=== PATIENT | female | born 1960 | race American Indian/Alaskan Native ===

== ENCOUNTER 2016-11-16 13:00 | Outpatient (CLI) | payer BC ==
[2016-11-16] MEDS ORDERED: XYLOCAINE TOPICAL 4% TP ONE (13:25)
[2016-11-16] MEDS ORDERED: XYLOCAINE TOPICAL 2% ONE (13:26)
[2016-11-16] MEDS ORDERED: XYLOCAINE TOPICAL 2% TP ONE (13:43)
== END 2016-11-16 13:01 | disposition home or self-care (01) ==
LOC: WOUND 13:00
PROVIDERS: ATTEND Nurse Practitioner
DX: I87.2 Venous insufficiency (chronic) (peripheral) (principal); L97.311 Non-pressure chronic ulcer of right ankle limited to breakdown of skin; I70.213 Atherosclerosis of native arteries of extremities with intermittent claudication, bilateral legs; I70.221 Atherosclerosis of native arteries of extremities with rest pain, right leg; M19.90 Unspecified osteoarthritis, unspecified site; I10 Essential (primary) hypertension; Z87.891 Personal history of nicotine dependence; Z98.62 Peripheral vascular angioplasty status; Z72.89 Other problems related to lifestyle
CPT/HCPCS: 11042; G0463

== ENCOUNTER 2016-11-20 14:48 | Outpatient (CLI) | payer BC | END 2016-11-20 14:49 | disposition home or self-care (01) | LOC: WOUND 14:48 | PROVIDERS: ATTEND Internal Medicine | DX: I87.2 Venous insufficiency (chronic) (peripheral) (principal); L97.311 Non-pressure chronic ulcer of right ankle limited to breakdown of skin; I70.213 Atherosclerosis of native arteries of extremities with intermittent claudication, bilateral legs; I70.221 Atherosclerosis of native arteries of extremities with rest pain, right leg; M06.9 Rheumatoid arthritis, unspecified; Z87.891 Personal history of nicotine dependence; Z72.89 Other problems related to lifestyle | CPT/HCPCS: 99213; G0463 ==

== ENCOUNTER 2016-11-23 13:03 | Outpatient (CLI) | payer BC ==
[2016-11-23] MEDS ORDERED: XYLOCAINE TOPICAL 4% TP ONE ×2 (13:42→13:48)
== END 2016-11-23 13:04 | disposition home or self-care (01) ==
LOC: WOUND 13:03
PROVIDERS: ATTEND Nurse Practitioner
DX: I87.2 Venous insufficiency (chronic) (peripheral) (principal); I70.221 Atherosclerosis of native arteries of extremities with rest pain, right leg; I70.213 Atherosclerosis of native arteries of extremities with intermittent claudication, bilateral legs; L97.311 Non-pressure chronic ulcer of right ankle limited to breakdown of skin; I10 Essential (primary) hypertension; M06.9 Rheumatoid arthritis, unspecified; Z98.62 Peripheral vascular angioplasty status; Z87.891 Personal history of nicotine dependence; Z72.89 Other problems related to lifestyle

== ENCOUNTER 2016-11-30 13:17 | Outpatient (CLI) | payer BC ==
[2016-11-30] MEDS ORDERED: XYLOCAINE TOPICAL 4% TP ONE ×2 (13:46→13:54)
== END 2016-11-30 13:18 | disposition home or self-care (01) ==
LOC: WOUND 13:17
PROVIDERS: ATTEND Nurse Practitioner
DX: I87.2 Venous insufficiency (chronic) (peripheral) (principal); M06.9 Rheumatoid arthritis, unspecified; I10 Essential (primary) hypertension; Z87.891 Personal history of nicotine dependence; Z72.89 Other problems related to lifestyle

== ENCOUNTER 2016-12-07 13:39 | Outpatient (CLI) | payer BC ==
[2016-12-07] MEDS ORDERED: XYLOCAINE TOPICAL 4% TP ONE ×2 (14:11→14:13)
== END 2016-12-07 13:40 | disposition home or self-care (01) ==
LOC: WOUND 13:39
PROVIDERS: ATTEND Nurse Practitioner
DX: I87.2 Venous insufficiency (chronic) (peripheral) (principal); L97.311 Non-pressure chronic ulcer of right ankle limited to breakdown of skin; I70.213 Atherosclerosis of native arteries of extremities with intermittent claudication, bilateral legs; I70.221 Atherosclerosis of native arteries of extremities with rest pain, right leg; M19.90 Unspecified osteoarthritis, unspecified site; I10 Essential (primary) hypertension; Z98.62 Peripheral vascular angioplasty status; Z87.891 Personal history of nicotine dependence; Z72.89 Other problems related to lifestyle
CPT/HCPCS: 29580

== ENCOUNTER 2016-12-15 13:08 | Outpatient (CLI) | payer BC ==
[2016-12-15] MEDS ORDERED: XYLOCAINE TOPICAL 4% TP ONE ×2 (13:35→13:48)
== END 2016-12-15 13:09 | disposition home or self-care (01) ==
LOC: WOUND 13:08
PROVIDERS: ATTEND Podiatrist
DX: I87.311 Chronic venous hypertension (idiopathic) with ulcer of right lower extremity (principal); I70.221 Atherosclerosis of native arteries of extremities with rest pain, right leg; L97.812 Non-pressure chronic ulcer of other part of right lower leg with fat layer exposed; M19.90 Unspecified osteoarthritis, unspecified site; Z98.62 Peripheral vascular angioplasty status; Z87.891 Personal history of nicotine dependence; Z72.89 Other problems related to lifestyle
CPT/HCPCS: 87075; 87076; 87116; 87186

== ENCOUNTER 2016-12-22 13:27 | Outpatient (CLI) | payer BC ==
[2016-12-22] MEDS ORDERED: XYLOCAINE TOPICAL 4% TP ONE (13:38)
[2016-12-22] MEDS ORDERED: XYLOCAINE TOPICAL 2% TP ONE (13:38)
[2016-12-22] MEDS ORDERED: XYLOCAINE TOPICAL 2% ONE (13:43)
== END 2016-12-22 13:28 | disposition home or self-care (01) ==
LOC: WOUND 13:27
PROVIDERS: ATTEND Podiatrist
DX: I87.311 Chronic venous hypertension (idiopathic) with ulcer of right lower extremity (principal); L97.311 Non-pressure chronic ulcer of right ankle limited to breakdown of skin; I70.213 Atherosclerosis of native arteries of extremities with intermittent claudication, bilateral legs; M06.9 Rheumatoid arthritis, unspecified; Z98.62 Peripheral vascular angioplasty status; Z87.891 Personal history of nicotine dependence; Z72.89 Other problems related to lifestyle

== ENCOUNTER 2016-12-26 13:45 | Outpatient (CLI) | payer BC | END 2016-12-26 13:46 | disposition home or self-care (01) | LOC: WOUND 13:45 | PROVIDERS: ATTEND Surgery | DX: I87.311 Chronic venous hypertension (idiopathic) with ulcer of right lower extremity (principal); L97.311 Non-pressure chronic ulcer of right ankle limited to breakdown of skin; L97.812 Non-pressure chronic ulcer of other part of right lower leg with fat layer exposed; I70.213 Atherosclerosis of native arteries of extremities with intermittent claudication, bilateral legs; I70.221 Atherosclerosis of native arteries of extremities with rest pain, right leg; M06.9 Rheumatoid arthritis, unspecified; Z87.891 Personal history of nicotine dependence; Z72.89 Other problems related to lifestyle; Z98.62 Peripheral vascular angioplasty status | CPT/HCPCS: 29580 ==

== ENCOUNTER 2016-12-29 11:23 | Outpatient (CLI) | payer BC ==
[2016-12-29] MEDS ORDERED: XYLOCAINE TOPICAL 4% TP ONE ×3 (13:58→14:05)
== END 2016-12-29 11:24 | disposition home or self-care (01) ==
LOC: WOUND 11:23
PROVIDERS: ATTEND Podiatrist
DX: I87.311 Chronic venous hypertension (idiopathic) with ulcer of right lower extremity (principal); L97.812 Non-pressure chronic ulcer of other part of right lower leg with fat layer exposed; M06.9 Rheumatoid arthritis, unspecified; Z98.62 Peripheral vascular angioplasty status; Z87.891 Personal history of nicotine dependence; Z72.89 Other problems related to lifestyle

== ENCOUNTER 2017-01-05 13:16 | Outpatient (CLI) | payer BC ==
[2017-01-05] MEDS ORDERED: XYLOCAINE TOPICAL 4% TP ONE (14:08)
== END 2017-01-05 13:17 | disposition home or self-care (01) ==
LOC: WOUND 13:16
PROVIDERS: ATTEND Podiatrist
DX: I87.311 Chronic venous hypertension (idiopathic) with ulcer of right lower extremity (principal); L97.311 Non-pressure chronic ulcer of right ankle limited to breakdown of skin; I70.213 Atherosclerosis of native arteries of extremities with intermittent claudication, bilateral legs; L97.812 Non-pressure chronic ulcer of other part of right lower leg with fat layer exposed; I70.221 Atherosclerosis of native arteries of extremities with rest pain, right leg; M06.9 Rheumatoid arthritis, unspecified; I87.2 Venous insufficiency (chronic) (peripheral); Z98.62 Peripheral vascular angioplasty status; Z87.891 Personal history of nicotine dependence; Z72.89 Other problems related to lifestyle

== ENCOUNTER 2017-01-12 13:22 | Outpatient (CLI) | payer BC ==
[2017-01-12] MEDS ORDERED: XYLOCAINE TOPICAL 4% TP ONE ×2 (13:45→13:46)
== END 2017-01-12 13:23 | disposition home or self-care (01) ==
LOC: WOUND 13:22
PROVIDERS: ATTEND Podiatrist
DX: I87.311 Chronic venous hypertension (idiopathic) with ulcer of right lower extremity (principal); I70.233 Atherosclerosis of native arteries of right leg with ulceration of ankle; L97.812 Non-pressure chronic ulcer of other part of right lower leg with fat layer exposed; M06.9 Rheumatoid arthritis, unspecified; Z98.62 Peripheral vascular angioplasty status; Z87.891 Personal history of nicotine dependence; Z72.89 Other problems related to lifestyle

== ENCOUNTER 2017-01-19 13:21 | Outpatient (CLI) | payer BC ==
[2017-01-19] MEDS ORDERED: XYLOCAINE TOPICAL 4% TP ONE ×2 (13:41→14:11)
== END 2017-01-19 13:22 | disposition home or self-care (01) ==
LOC: WOUND 13:21
PROVIDERS: ATTEND Podiatrist
DX: I87.311 Chronic venous hypertension (idiopathic) with ulcer of right lower extremity (principal); L97.812 Non-pressure chronic ulcer of other part of right lower leg with fat layer exposed; I70.213 Atherosclerosis of native arteries of extremities with intermittent claudication, bilateral legs; M06.9 Rheumatoid arthritis, unspecified; Z98.62 Peripheral vascular angioplasty status; Z87.891 Personal history of nicotine dependence; Z72.89 Other problems related to lifestyle

== ENCOUNTER 2017-02-02 13:25 | Outpatient (CLI) | payer BC | END 2017-02-02 13:26 | disposition home or self-care (01) | LOC: WOUND 13:25 | PROVIDERS: ATTEND Podiatrist | DX: I87.311 Chronic venous hypertension (idiopathic) with ulcer of right lower extremity (principal); L97.812 Non-pressure chronic ulcer of other part of right lower leg with fat layer exposed; M19.90 Unspecified osteoarthritis, unspecified site; I10 Essential (primary) hypertension; Z98.62 Peripheral vascular angioplasty status; Z87.891 Personal history of nicotine dependence; Z72.89 Other problems related to lifestyle | CPT/HCPCS: 29580 ==

== ENCOUNTER 2017-02-09 13:24 | Outpatient (CLI) | payer BC ==
[2017-02-09] MEDS ORDERED: XYLOCAINE TOPICAL 4% TP ONE ×2 (13:30→15:00)
== END 2017-02-09 13:25 | disposition home or self-care (01) ==
LOC: WOUND 13:24
PROVIDERS: ATTEND Podiatrist
DX: I87.311 Chronic venous hypertension (idiopathic) with ulcer of right lower extremity (principal); L97.311 Non-pressure chronic ulcer of right ankle limited to breakdown of skin; I70.221 Atherosclerosis of native arteries of extremities with rest pain, right leg; M06.9 Rheumatoid arthritis, unspecified; Z87.891 Personal history of nicotine dependence; Z72.89 Other problems related to lifestyle

== ENCOUNTER 2017-02-23 13:22 | Outpatient (CLI) | payer BC ==
[2017-02-23] MEDS ORDERED: XYLOCAINE TOPICAL 4% TP ONE (14:00)
== END 2017-02-23 13:23 | disposition home or self-care (01) ==
LOC: WOUND 13:22
PROVIDERS: ATTEND Podiatrist
DX: I87.311 Chronic venous hypertension (idiopathic) with ulcer of right lower extremity (principal); L97.812 Non-pressure chronic ulcer of other part of right lower leg with fat layer exposed; I70.213 Atherosclerosis of native arteries of extremities with intermittent claudication, bilateral legs; I70.221 Atherosclerosis of native arteries of extremities with rest pain, right leg; M06.9 Rheumatoid arthritis, unspecified; I10 Essential (primary) hypertension; Z87.891 Personal history of nicotine dependence; Z72.89 Other problems related to lifestyle

== ENCOUNTER 2017-03-05 10:47 | Outpatient (CLI) | payer BC ==
[2017-03-05] MEDS ORDERED: XYLOCAINE TOPICAL 4% TP ONE ×2 (12:05→12:09)
== END 2017-03-05 10:48 | disposition home or self-care (01) ==
LOC: WOUND 10:47
PROVIDERS: ATTEND Internal Medicine
DX: I87.311 Chronic venous hypertension (idiopathic) with ulcer of right lower extremity (principal); I70.213 Atherosclerosis of native arteries of extremities with intermittent claudication, bilateral legs; L97.812 Non-pressure chronic ulcer of other part of right lower leg with fat layer exposed; M06.9 Rheumatoid arthritis, unspecified; Z98.62 Peripheral vascular angioplasty status; Z87.891 Personal history of nicotine dependence; Z72.89 Other problems related to lifestyle
CPT/HCPCS: 11055; 11056

== ENCOUNTER 2017-03-23 07:54 | Outpatient (CLI) | payer BC ==
[2017-03-23] MEDS ORDERED: XYLOCAINE TOPICAL 4% TP ONE (08:20)
== END 2017-03-23 07:55 | disposition home or self-care (01) ==
LOC: WOUND 07:54
PROVIDERS: ATTEND Podiatrist
DX: I87.311 Chronic venous hypertension (idiopathic) with ulcer of right lower extremity (principal); L97.312 Non-pressure chronic ulcer of right ankle with fat layer exposed; I87.2 Venous insufficiency (chronic) (peripheral); I70.233 Atherosclerosis of native arteries of right leg with ulceration of ankle; I10 Essential (primary) hypertension; M19.90 Unspecified osteoarthritis, unspecified site; Z87.891 Personal history of nicotine dependence; Z72.89 Other problems related to lifestyle

== ENCOUNTER 2017-03-30 07:50 | Outpatient (CLI) | payer BC ==
[2017-03-30] MEDS ORDERED: XYLOCAINE TOPICAL 4% TP ONE (08:38)
[2017-03-30] MEDS ORDERED: XYLOCAINE TOPICAL 2% 5ML ONE (08:40)
== END 2017-03-30 07:51 | disposition home or self-care (01) ==
LOC: WOUND 07:50
PROVIDERS: ATTEND Podiatrist
DX: I87.311 Chronic venous hypertension (idiopathic) with ulcer of right lower extremity (principal); I70.261 Atherosclerosis of native arteries of extremities with gangrene, right leg; L97.312 Non-pressure chronic ulcer of right ankle with fat layer exposed; M06.9 Rheumatoid arthritis, unspecified; Z87.891 Personal history of nicotine dependence; Z72.89 Other problems related to lifestyle

== ENCOUNTER 2017-04-06 07:49 | Outpatient (CLI) | payer BC ==
[2017-04-06] MEDS ORDERED: XYLOCAINE TOPICAL 4% TP ONE ×2 (08:36→08:43)
== END 2017-04-06 07:50 | disposition home or self-care (01) ==
LOC: WOUND 07:49
PROVIDERS: ATTEND Podiatrist
DX: I87.311 Chronic venous hypertension (idiopathic) with ulcer of right lower extremity (principal); L97.812 Non-pressure chronic ulcer of other part of right lower leg with fat layer exposed; I70.221 Atherosclerosis of native arteries of extremities with rest pain, right leg; M06.9 Rheumatoid arthritis, unspecified; Z87.891 Personal history of nicotine dependence; Z72.89 Other problems related to lifestyle

== ENCOUNTER 2017-04-13 07:54 | Outpatient (CLI) | payer BC ==
[2017-04-13] MEDS ORDERED: XYLOCAINE TOPICAL 4% TP ONE (08:28)
== END 2017-04-13 07:55 | disposition home or self-care (01) ==
LOC: WOUND 07:54
PROVIDERS: ATTEND Podiatrist
DX: I87.311 Chronic venous hypertension (idiopathic) with ulcer of right lower extremity (principal); L97.812 Non-pressure chronic ulcer of other part of right lower leg with fat layer exposed; I70.213 Atherosclerosis of native arteries of extremities with intermittent claudication, bilateral legs; M06.9 Rheumatoid arthritis, unspecified; Z98.62 Peripheral vascular angioplasty status; Z87.891 Personal history of nicotine dependence; Z72.89 Other problems related to lifestyle

== ENCOUNTER 2017-04-20 07:52 | Outpatient (CLI) | payer BC ==
[2017-04-20] MEDS ORDERED: XYLOCAINE TOPICAL 4% TP ONE ×2 (08:24→08:28)
== END 2017-04-20 07:53 | disposition home or self-care (01) ==
LOC: WOUND 07:52
PROVIDERS: ATTEND Podiatrist
DX: I70.221 Atherosclerosis of native arteries of extremities with rest pain, right leg (principal); I87.311 Chronic venous hypertension (idiopathic) with ulcer of right lower extremity; L97.311 Non-pressure chronic ulcer of right ankle limited to breakdown of skin; M06.9 Rheumatoid arthritis, unspecified; I10 Essential (primary) hypertension; Z87.891 Personal history of nicotine dependence; Z72.89 Other problems related to lifestyle

== ENCOUNTER 2017-04-27 07:53 | Outpatient (CLI) | payer BC ==
[2017-04-27] MEDS ORDERED: XYLOCAINE TOPICAL 4% TP ONE ×3 (08:22→09:06)
[2017-04-27] MEDS ORDERED: AD OINTMENT TP SCH (10:00)
== END 2017-04-27 07:54 | disposition home or self-care (01) ==
LOC: WOUND 07:53
PROVIDERS: ATTEND Internal Medicine
DX: I70.221 Atherosclerosis of native arteries of extremities with rest pain, right leg (principal); I87.311 Chronic venous hypertension (idiopathic) with ulcer of right lower extremity; L97.311 Non-pressure chronic ulcer of right ankle limited to breakdown of skin; M06.9 Rheumatoid arthritis, unspecified; I10 Essential (primary) hypertension; Z87.891 Personal history of nicotine dependence; Z72.89 Other problems related to lifestyle
CPT/HCPCS: 11055; A6250

== ENCOUNTER 2017-05-04 07:50 | Outpatient (CLI) | payer BC ==
[2017-05-04] MEDS ORDERED: XYLOCAINE TOPICAL 4% TP ONE ×2 (08:03→08:15)
== END 2017-05-04 07:51 | disposition home or self-care (01) ==
LOC: WOUND 07:50
PROVIDERS: ATTEND Podiatrist
DX: I87.311 Chronic venous hypertension (idiopathic) with ulcer of right lower extremity (principal); L97.812 Non-pressure chronic ulcer of other part of right lower leg with fat layer exposed; I70.213 Atherosclerosis of native arteries of extremities with intermittent claudication, bilateral legs; M06.9 Rheumatoid arthritis, unspecified; Z87.891 Personal history of nicotine dependence; Z72.89 Other problems related to lifestyle
CPT/HCPCS: 29580

== ENCOUNTER 2017-05-11 07:56 | Outpatient (CLI) | payer BC ==
[2017-05-11] MEDS ORDERED: XYLOCAINE TOPICAL 4% TP ONE (08:31)
== END 2017-05-11 07:57 | disposition home or self-care (01) ==
LOC: WOUND 07:56
PROVIDERS: ATTEND Podiatrist
DX: I87.311 Chronic venous hypertension (idiopathic) with ulcer of right lower extremity (principal); L97.812 Non-pressure chronic ulcer of other part of right lower leg with fat layer exposed; I70.221 Atherosclerosis of native arteries of extremities with rest pain, right leg; M06.9 Rheumatoid arthritis, unspecified; Z98.62 Peripheral vascular angioplasty status; Z87.891 Personal history of nicotine dependence; Z72.89 Other problems related to lifestyle
CPT/HCPCS: 29580

== ENCOUNTER 2017-05-18 07:50 | Outpatient (CLI) | payer BC ==
[2017-05-18] MEDS ORDERED: XYLOCAINE TOPICAL 4% TP ONE (08:22)
== END 2017-05-18 07:51 | disposition home or self-care (01) ==
LOC: WOUND 07:50
PROVIDERS: ATTEND Podiatrist
DX: L97.311 Non-pressure chronic ulcer of right ankle limited to breakdown of skin (principal); I87.311 Chronic venous hypertension (idiopathic) with ulcer of right lower extremity; I70.213 Atherosclerosis of native arteries of extremities with intermittent claudication, bilateral legs; M06.9 Rheumatoid arthritis, unspecified; Z87.891 Personal history of nicotine dependence
CPT/HCPCS: 29580

== ENCOUNTER 2017-05-25 07:53 | Outpatient (CLI) | payer BC | END 2017-05-25 07:54 | disposition home or self-care (01) | LOC: WOUND 07:53 | PROVIDERS: ATTEND Podiatrist | DX: I87.311 Chronic venous hypertension (idiopathic) with ulcer of right lower extremity (principal); L97.812 Non-pressure chronic ulcer of other part of right lower leg with fat layer exposed; L97.311 Non-pressure chronic ulcer of right ankle limited to breakdown of skin; M06.9 Rheumatoid arthritis, unspecified; I10 Essential (primary) hypertension; I70.221 Atherosclerosis of native arteries of extremities with rest pain, right leg; Z98.62 Peripheral vascular angioplasty status; Z87.891 Personal history of nicotine dependence; Z72.89 Other problems related to lifestyle | CPT/HCPCS: 99204; 99214; G0463 ==

== ENCOUNTER 2017-07-26 08:00 | Outpatient (CLI) | payer BC ==
[2017-07-26] MEDS ORDERED: XYLOCAINE TOPICAL 4% TP ONE (08:27)
== END 2017-07-26 08:01 | disposition home or self-care (01) ==
LOC: WOUND 08:00
PROVIDERS: ATTEND Nurse Practitioner
DX: I87.311 Chronic venous hypertension (idiopathic) with ulcer of right lower extremity (principal); L97.311 Non-pressure chronic ulcer of right ankle limited to breakdown of skin; L97.812 Non-pressure chronic ulcer of other part of right lower leg with fat layer exposed; M06.9 Rheumatoid arthritis, unspecified; I10 Essential (primary) hypertension; I70.221 Atherosclerosis of native arteries of extremities with rest pain, right leg; Z98.62 Peripheral vascular angioplasty status; Z87.891 Personal history of nicotine dependence
CPT/HCPCS: 11042; 29580; G0463

== ENCOUNTER 2017-08-02 07:56 | Outpatient (CLI) | payer BC ==
[2017-08-02] MEDS ORDERED: XYLOCAINE TOPICAL 4% TP ONE ×2 (08:11→12:38)
== END 2017-08-02 07:57 | disposition home or self-care (01) ==
LOC: WOUND 07:56
PROVIDERS: ATTEND Surgery
DX: I87.311 Chronic venous hypertension (idiopathic) with ulcer of right lower extremity (principal); L97.311 Non-pressure chronic ulcer of right ankle limited to breakdown of skin; L97.812 Non-pressure chronic ulcer of other part of right lower leg with fat layer exposed; M06.9 Rheumatoid arthritis, unspecified; I10 Essential (primary) hypertension; I70.221 Atherosclerosis of native arteries of extremities with rest pain, right leg; Z98.62 Peripheral vascular angioplasty status; Z87.891 Personal history of nicotine dependence
CPT/HCPCS: 29580

== ENCOUNTER 2017-08-09 07:55 | Outpatient (CLI) | payer BC ==
[2017-08-09] MEDS ORDERED: XYLOCAINE TOPICAL 4% TP ONE ×2 (08:19→08:35)
[2017-08-09] MEDS ORDERED: SILVER NITRATE TP ONE ×2 (08:39→10:21)
== END 2017-08-09 07:56 | disposition home or self-care (01) ==
LOC: WOUND 07:55
PROVIDERS: ATTEND Nurse Practitioner
DX: I87.311 Chronic venous hypertension (idiopathic) with ulcer of right lower extremity (principal); I70.221 Atherosclerosis of native arteries of extremities with rest pain, right leg; L97.312 Non-pressure chronic ulcer of right ankle with fat layer exposed; M06.9 Rheumatoid arthritis, unspecified; F17.210 Nicotine dependence, cigarettes, uncomplicated
CPT/HCPCS: 29580

== ENCOUNTER 2017-08-16 07:59 | Outpatient (CLI) | payer BC ==
[2017-08-16] MEDS ORDERED: XYLOCAINE TOPICAL 4% TP ONE ×2 (08:32→08:33)
== END 2017-08-16 08:00 | disposition home or self-care (01) ==
LOC: WOUND 07:59
PROVIDERS: ATTEND Surgery
DX: I87.311 Chronic venous hypertension (idiopathic) with ulcer of right lower extremity (principal); L97.311 Non-pressure chronic ulcer of right ankle limited to breakdown of skin; M06.9 Rheumatoid arthritis, unspecified; F17.210 Nicotine dependence, cigarettes, uncomplicated
CPT/HCPCS: 29580

== ENCOUNTER 2017-08-23 08:00 | Outpatient (CLI) | payer BC ==
[2017-08-23] MEDS ORDERED: XYLOCAINE TOPICAL 4% TP ONE (08:05)
== END 2017-08-23 08:01 | disposition home or self-care (01) ==
LOC: WOUND 08:00
PROVIDERS: ATTEND Surgery
DX: I87.311 Chronic venous hypertension (idiopathic) with ulcer of right lower extremity (principal); L97.311 Non-pressure chronic ulcer of right ankle limited to breakdown of skin; M06.9 Rheumatoid arthritis, unspecified; F17.210 Nicotine dependence, cigarettes, uncomplicated
CPT/HCPCS: 29581

== ENCOUNTER 2017-08-30 08:01 | Outpatient (CLI) | payer BC ==
[2017-08-30] MEDS ORDERED: XYLOCAINE TOPICAL 4% TP ONE (08:14)
== END 2017-08-30 08:02 | disposition home or self-care (01) ==
LOC: WOUND 08:01
PROVIDERS: ATTEND Surgery
DX: I87.311 Chronic venous hypertension (idiopathic) with ulcer of right lower extremity (principal); L97.311 Non-pressure chronic ulcer of right ankle limited to breakdown of skin; I70.213 Atherosclerosis of native arteries of extremities with intermittent claudication, bilateral legs; M06.9 Rheumatoid arthritis, unspecified; F17.210 Nicotine dependence, cigarettes, uncomplicated
CPT/HCPCS: 29580

== ENCOUNTER 2017-09-07 08:41 | Outpatient (CLI) | payer BC ==
[~2017-09-07 08:41] MED LIST: XYLOCAINE TOPICAL 4% TP ONE
[2017-09-07] MEDS ORDERED: XYLOCAINE TOPICAL 4% TP ONE (09:09)
== END 2017-09-07 08:42 | disposition home or self-care (01) ==
LOC: WOUND 08:41
PROVIDERS: ATTEND Surgery
DX: I87.311 Chronic venous hypertension (idiopathic) with ulcer of right lower extremity (principal); L97.312 Non-pressure chronic ulcer of right ankle with fat layer exposed; M06.9 Rheumatoid arthritis, unspecified; F17.210 Nicotine dependence, cigarettes, uncomplicated
CPT/HCPCS: 29580

== ENCOUNTER 2017-09-21 08:20 | Outpatient (CLI) | payer BC ==
[2017-09-21] MEDS ORDERED: XYLOCAINE TOPICAL 4% TP ONE (08:22)
== END 2017-09-21 08:21 | disposition home or self-care (01) ==
LOC: WOUND 08:20
PROVIDERS: ATTEND Surgery
DX: I87.311 Chronic venous hypertension (idiopathic) with ulcer of right lower extremity (principal); L97.311 Non-pressure chronic ulcer of right ankle limited to breakdown of skin; M06.9 Rheumatoid arthritis, unspecified; F17.210 Nicotine dependence, cigarettes, uncomplicated
CPT/HCPCS: 29580

== ENCOUNTER 2017-09-28 08:00 | Outpatient (CLI) | payer BC ==
[2017-09-28] MEDS ORDERED: XYLOCAINE TOPICAL 4% TP ONE ×2 (08:18→08:31)
== END 2017-09-28 08:01 | disposition home or self-care (01) ==
LOC: WOUND 08:00
PROVIDERS: ATTEND Surgery
DX: I87.311 Chronic venous hypertension (idiopathic) with ulcer of right lower extremity (principal); L97.311 Non-pressure chronic ulcer of right ankle limited to breakdown of skin; M06.9 Rheumatoid arthritis, unspecified; F17.210 Nicotine dependence, cigarettes, uncomplicated
CPT/HCPCS: 29580

== ENCOUNTER 2017-10-05 08:03 | Outpatient (CLI) | payer BC ==
[2017-10-05] MEDS ORDERED: XYLOCAINE TOPICAL 4% TP ONE (08:05)
== END 2017-10-05 08:04 | disposition home or self-care (01) ==
LOC: WOUND 08:03
PROVIDERS: ATTEND Surgery
DX: I87.311 Chronic venous hypertension (idiopathic) with ulcer of right lower extremity (principal); L97.312 Non-pressure chronic ulcer of right ankle with fat layer exposed; M06.9 Rheumatoid arthritis, unspecified; F17.210 Nicotine dependence, cigarettes, uncomplicated
CPT/HCPCS: 29580

== ENCOUNTER 2017-10-12 07:57 | Outpatient (CLI) | payer BC ==
[2017-10-12] MEDS ORDERED: XYLOCAINE TOPICAL 4% TP ONE ×2 (08:05→10:34)
== END 2017-10-12 07:58 | disposition home or self-care (01) ==
LOC: WOUND 07:57
PROVIDERS: ATTEND Surgery
DX: I87.311 Chronic venous hypertension (idiopathic) with ulcer of right lower extremity (principal); L97.312 Non-pressure chronic ulcer of right ankle with fat layer exposed; M06.9 Rheumatoid arthritis, unspecified; F17.210 Nicotine dependence, cigarettes, uncomplicated
CPT/HCPCS: 29580

== ENCOUNTER 2017-10-19 08:00 | Outpatient (CLI) | payer BC ==
[2017-10-19] MEDS ORDERED: XYLOCAINE TOPICAL 4% TP ONE (09:58)
== END 2017-10-19 08:01 | disposition home or self-care (01) ==
LOC: WOUND 08:00
PROVIDERS: ATTEND Surgery
DX: I87.311 Chronic venous hypertension (idiopathic) with ulcer of right lower extremity (principal); L97.312 Non-pressure chronic ulcer of right ankle with fat layer exposed; M06.9 Rheumatoid arthritis, unspecified; F17.210 Nicotine dependence, cigarettes, uncomplicated
CPT/HCPCS: 29580

== ENCOUNTER 2017-10-26 08:01 | Outpatient (CLI) | payer BC | END 2017-10-26 08:02 | disposition home or self-care (01) | LOC: WOUND 08:01 | PROVIDERS: ATTEND Surgery | DX: I87.311 Chronic venous hypertension (idiopathic) with ulcer of right lower extremity (principal); L97.312 Non-pressure chronic ulcer of right ankle with fat layer exposed; M06.9 Rheumatoid arthritis, unspecified; F17.210 Nicotine dependence, cigarettes, uncomplicated | CPT/HCPCS: 29580 ==

== ENCOUNTER 2017-11-02 07:55 | Outpatient (CLI) | payer BC ==
[2017-11-02] MEDS ORDERED: XYLOCAINE TOPICAL 4% TP ONE ×2 (07:56→08:21)
[2017-11-02] MEDS ORDERED: SILVER NITRATE TP ONE ×2 (08:28→08:31)
== END 2017-11-02 07:56 | disposition home or self-care (01) ==
LOC: WOUND 07:55
PROVIDERS: ATTEND Surgery
DX: I87.311 Chronic venous hypertension (idiopathic) with ulcer of right lower extremity (principal); L97.312 Non-pressure chronic ulcer of right ankle with fat layer exposed; M06.9 Rheumatoid arthritis, unspecified; F17.210 Nicotine dependence, cigarettes, uncomplicated
CPT/HCPCS: 29580

== ENCOUNTER 2017-11-09 07:51 | Outpatient (CLI) | payer BC ==
[2017-11-09] MEDS ORDERED: XYLOCAINE TOPICAL 4% TP ONE ×2 (07:53→08:17)
== END 2017-11-09 07:52 | disposition home or self-care (01) ==
LOC: WOUND 07:51
PROVIDERS: ATTEND Surgery
DX: I87.311 Chronic venous hypertension (idiopathic) with ulcer of right lower extremity (principal); L97.312 Non-pressure chronic ulcer of right ankle with fat layer exposed; M06.9 Rheumatoid arthritis, unspecified; F17.210 Nicotine dependence, cigarettes, uncomplicated
CPT/HCPCS: 29580

== ENCOUNTER 2017-11-16 07:47 | Outpatient (CLI) | payer BC ==
[2017-11-16] MEDS ORDERED: XYLOCAINE TOPICAL 4% TP ONE ×2 (07:58→15:19)
== END 2017-11-16 07:48 | disposition home or self-care (01) ==
LOC: WOUND 07:47
PROVIDERS: ATTEND Surgery
DX: I87.311 Chronic venous hypertension (idiopathic) with ulcer of right lower extremity (principal); I70.221 Atherosclerosis of native arteries of extremities with rest pain, right leg; L97.312 Non-pressure chronic ulcer of right ankle with fat layer exposed; M06.9 Rheumatoid arthritis, unspecified; F17.210 Nicotine dependence, cigarettes, uncomplicated
CPT/HCPCS: 29580

== ENCOUNTER 2017-12-07 07:46 | Outpatient (CLI) | payer BC | END 2017-12-07 07:47 | disposition home or self-care (01) | LOC: WOUND 07:46 | PROVIDERS: ATTEND Surgery | DX: I87.311 Chronic venous hypertension (idiopathic) with ulcer of right lower extremity (principal); I70.221 Atherosclerosis of native arteries of extremities with rest pain, right leg; L97.312 Non-pressure chronic ulcer of right ankle with fat layer exposed; M06.9 Rheumatoid arthritis, unspecified; F17.210 Nicotine dependence, cigarettes, uncomplicated | CPT/HCPCS: 29580 ==

== ENCOUNTER 2017-12-14 07:45 | Outpatient (CLI) | payer BC | END 2017-12-14 07:46 | disposition home or self-care (01) | LOC: WOUND 07:45 | PROVIDERS: ATTEND Surgery | DX: I87.311 Chronic venous hypertension (idiopathic) with ulcer of right lower extremity (principal); I70.221 Atherosclerosis of native arteries of extremities with rest pain, right leg; L97.312 Non-pressure chronic ulcer of right ankle with fat layer exposed; M06.9 Rheumatoid arthritis, unspecified; F17.210 Nicotine dependence, cigarettes, uncomplicated | CPT/HCPCS: 29580 ==

== ENCOUNTER 2017-12-21 07:47 | Outpatient (CLI) | payer BC | END 2017-12-21 07:48 | disposition home or self-care (01) | LOC: WOUND 07:47 | PROVIDERS: ATTEND Surgery | DX: I87.311 Chronic venous hypertension (idiopathic) with ulcer of right lower extremity (principal); I70.221 Atherosclerosis of native arteries of extremities with rest pain, right leg; L97.312 Non-pressure chronic ulcer of right ankle with fat layer exposed; M06.9 Rheumatoid arthritis, unspecified; F17.210 Nicotine dependence, cigarettes, uncomplicated | CPT/HCPCS: 29580; G0463; 99213 ==

== ENCOUNTER 2017-12-28 07:45 | Outpatient (CLI) | payer BC | END 2017-12-28 07:46 | disposition home or self-care (01) | LOC: WOUND 07:45 | PROVIDERS: ATTEND Surgery | DX: I87.311 Chronic venous hypertension (idiopathic) with ulcer of right lower extremity (principal); I70.211 Atherosclerosis of native arteries of extremities with intermittent claudication, right leg; L97.312 Non-pressure chronic ulcer of right ankle with fat layer exposed; M06.9 Rheumatoid arthritis, unspecified; F17.210 Nicotine dependence, cigarettes, uncomplicated | CPT/HCPCS: 29580 ==

== ENCOUNTER 2018-03-25 07:43 | Outpatient (CLI) | payer BC ==
[2018-03-25] MEDS ORDERED: XYLOCAINE TOPICAL 4% TP ONE (08:13)
[2018-03-25] MEDS ORDERED: AD OINTMENT TP PRN (08:14)
== END 2018-03-25 07:44 | disposition home or self-care (01) ==
LOC: WOUND 07:43
PROVIDERS: ATTEND Surgery
DX: L97.312 Non-pressure chronic ulcer of right ankle with fat layer exposed (principal); I87.2 Venous insufficiency (chronic) (peripheral); I10 Essential (primary) hypertension; M06.9 Rheumatoid arthritis, unspecified; F17.210 Nicotine dependence, cigarettes, uncomplicated
CPT/HCPCS: 11042; G0463; 99215; A6250

== ENCOUNTER 2018-04-01 07:47 | Outpatient (CLI) | payer OTHER ==
[2018-04-01] MEDS ORDERED: XYLOCAINE TOPICAL 4% TP ONE (08:11)
== END 2018-04-01 07:48 | disposition home or self-care (01) ==
LOC: WOUND 07:47
PROVIDERS: ATTEND Surgery
DX: I87.331 Chronic venous hypertension (idiopathic) with ulcer and inflammation of right lower extremity (principal); L97.312 Non-pressure chronic ulcer of right ankle with fat layer exposed; I10 Essential (primary) hypertension; M06.9 Rheumatoid arthritis, unspecified; F17.210 Nicotine dependence, cigarettes, uncomplicated

== ENCOUNTER 2018-04-15 07:47 | Outpatient (CLI) | payer OTHER ==
[2018-04-15] MEDS ORDERED: XYLOCAINE TOPICAL 2% 30ML TP ONE (08:10)
== END 2018-04-15 07:48 | disposition home or self-care (01) ==
LOC: WOUND 07:47
PROVIDERS: ATTEND Surgery
DX: I87.331 Chronic venous hypertension (idiopathic) with ulcer and inflammation of right lower extremity (principal); L97.313 Non-pressure chronic ulcer of right ankle with necrosis of muscle; I87.2 Venous insufficiency (chronic) (peripheral); M06.9 Rheumatoid arthritis, unspecified; F17.210 Nicotine dependence, cigarettes, uncomplicated

== ENCOUNTER 2018-04-29 07:49 | Outpatient (CLI) | payer OTHER | END 2018-04-29 07:50 | disposition home or self-care (01) | LOC: WOUND 07:49 ==

== ENCOUNTER 2018-05-13 07:50 | Outpatient (CLI) | payer OTHER ==
[2018-05-13] MEDS ORDERED: XYLOCAINE TOPICAL 4% TP ONE (08:10)
[2018-05-13] MEDS ORDERED: AD OINTMENT TP SCH (10:00)
== END 2018-05-13 07:51 | disposition home or self-care (01) ==
LOC: WOUND 07:50
PROVIDERS: ATTEND Surgery
DX: I87.331 Chronic venous hypertension (idiopathic) with ulcer and inflammation of right lower extremity (principal); L97.312 Non-pressure chronic ulcer of right ankle with fat layer exposed; I87.2 Venous insufficiency (chronic) (peripheral); M06.9 Rheumatoid arthritis, unspecified; F17.210 Nicotine dependence, cigarettes, uncomplicated
CPT/HCPCS: 99213; G0463

== ENCOUNTER 2018-06-17 07:51 | Outpatient (CLI) | payer OTHER ==
[2018-06-17] MEDS ORDERED: XYLOCAINE TOPICAL 4% TP ONE ×2 (08:45→08:54)
[2018-06-17] MEDS ORDERED: AD OINTMENT TP SCH (08:45)
[2018-06-17] MEDS ORDERED: AD OINTMENT TP ONE (08:54)
== END 2018-06-17 07:52 | disposition home or self-care (01) ==
LOC: WOUND 07:51
PROVIDERS: ATTEND Surgery
DX: I87.331 Chronic venous hypertension (idiopathic) with ulcer and inflammation of right lower extremity (principal); L97.312 Non-pressure chronic ulcer of right ankle with fat layer exposed; M06.9 Rheumatoid arthritis, unspecified; F17.210 Nicotine dependence, cigarettes, uncomplicated
CPT/HCPCS: A6250

== ENCOUNTER 2018-07-01 07:47 | Outpatient (CLI) | payer OTHER | END 2018-07-01 07:48 | disposition home or self-care (01) | LOC: WOUND 07:47 | PROVIDERS: ATTEND Surgery | DX: L97.312 Non-pressure chronic ulcer of right ankle with fat layer exposed (principal); M06.9 Rheumatoid arthritis, unspecified; I10 Essential (primary) hypertension; F17.210 Nicotine dependence, cigarettes, uncomplicated | CPT/HCPCS: 99213; G0463 ==

== ENCOUNTER 2018-10-25 07:49 | Outpatient (CLI) | payer OTHER ==
[2018-10-25] MEDS ORDERED: XYLOCAINE TOPICAL 4% TP ONE (08:30)
== END 2018-10-25 07:50 | disposition home or self-care (01) ==
LOC: WOUND 07:49
PROVIDERS: ATTEND Surgery
DX: L97.312 Non-pressure chronic ulcer of right ankle with fat layer exposed (principal); I10 Essential (primary) hypertension; I25.10 Atherosclerotic heart disease of native coronary artery without angina pectoris; I87.2 Venous insufficiency (chronic) (peripheral); M06.9 Rheumatoid arthritis, unspecified; F17.210 Nicotine dependence, cigarettes, uncomplicated; Z95.2 Presence of prosthetic heart valve
CPT/HCPCS: 99215; G0463

== ENCOUNTER 2019-01-24 07:52 | Outpatient (CLI) | payer OTHER ==
[2019-01-24] MEDS ORDERED: LIDOCAINE (4%) 40 MG/ML TOPICAL SOLN 50 ML BOTTLE TP ONE (08:30)
== END 2019-01-24 07:53 | disposition home or self-care (01) ==
LOC: WOUND 07:52
PROVIDERS: ATTEND Surgery
DX: E11.622 Type 2 diabetes mellitus with other skin ulcer (principal); L97.311 Non-pressure chronic ulcer of right ankle limited to breakdown of skin; I87.2 Venous insufficiency (chronic) (peripheral); I50.40 Unspecified combined systolic (congestive) and diastolic (congestive) heart failure; I11.0 Hypertensive heart disease with heart failure; I25.10 Atherosclerotic heart disease of native coronary artery without angina pectoris; M06.9 Rheumatoid arthritis, unspecified; E66.9 Obesity, unspecified; F17.210 Nicotine dependence, cigarettes, uncomplicated; Z68.42 Body mass index [BMI] 45.0-49.9, adult; Z95.828 Presence of other vascular implants and grafts; Z79.4 Long term (current) use of insulin
CPT/HCPCS: 29581

== ENCOUNTER 2019-01-31 07:52 | Outpatient (CLI) | payer OTHER ==
[2019-01-31] MEDS ORDERED: LIDOCAINE (4%) 40 MG/ML TOPICAL SOLN 50 ML BOTTLE TP ONE (08:30)
== END 2019-01-31 07:53 | disposition home or self-care (01) ==
LOC: WOUND 07:52
PROVIDERS: ATTEND Surgery
DX: E11.622 Type 2 diabetes mellitus with other skin ulcer (principal); L97.312 Non-pressure chronic ulcer of right ankle with fat layer exposed; I87.2 Venous insufficiency (chronic) (peripheral); I11.0 Hypertensive heart disease with heart failure; I50.40 Unspecified combined systolic (congestive) and diastolic (congestive) heart failure; I25.10 Atherosclerotic heart disease of native coronary artery without angina pectoris; M06.9 Rheumatoid arthritis, unspecified; E66.9 Obesity, unspecified; F17.210 Nicotine dependence, cigarettes, uncomplicated; Z68.42 Body mass index [BMI] 45.0-49.9, adult; Z95.828 Presence of other vascular implants and grafts; Z79.4 Long term (current) use of insulin; Z95.2 Presence of prosthetic heart valve
CPT/HCPCS: 29581

== ENCOUNTER 2019-02-07 07:55 | Outpatient (CLI) | payer OTHER ==
[2019-02-07] MEDS ORDERED: LIDOCAINE (4%) 40 MG/ML TOPICAL SOLN 50 ML BOTTLE TP ONE (08:30)
== END 2019-02-07 07:56 | disposition home or self-care (01) ==
LOC: WOUND 07:55
PROVIDERS: ATTEND Surgery
DX: E11.622 Type 2 diabetes mellitus with other skin ulcer (principal); L97.312 Non-pressure chronic ulcer of right ankle with fat layer exposed; I87.2 Venous insufficiency (chronic) (peripheral); I11.0 Hypertensive heart disease with heart failure; I50.40 Unspecified combined systolic (congestive) and diastolic (congestive) heart failure; I25.10 Atherosclerotic heart disease of native coronary artery without angina pectoris; M06.9 Rheumatoid arthritis, unspecified; E66.9 Obesity, unspecified; F17.210 Nicotine dependence, cigarettes, uncomplicated; Z68.42 Body mass index [BMI] 45.0-49.9, adult; Z95.828 Presence of other vascular implants and grafts; Z79.4 Long term (current) use of insulin; Z95.2 Presence of prosthetic heart valve
CPT/HCPCS: 29581

== ENCOUNTER 2019-02-14 07:51 | Outpatient (CLI) | payer OTHER ==
[2019-02-14] MEDS ORDERED: LIDOCAINE (4%) 40 MG/ML TOPICAL SOLN 50 ML BOTTLE TP ONE (08:30)
== END 2019-02-14 07:52 | disposition home or self-care (01) ==
LOC: WOUND 07:51
PROVIDERS: ATTEND Surgery
DX: E11.622 Type 2 diabetes mellitus with other skin ulcer (principal); L97.312 Non-pressure chronic ulcer of right ankle with fat layer exposed; I87.2 Venous insufficiency (chronic) (peripheral); I11.0 Hypertensive heart disease with heart failure; I50.40 Unspecified combined systolic (congestive) and diastolic (congestive) heart failure; I25.10 Atherosclerotic heart disease of native coronary artery without angina pectoris; M06.9 Rheumatoid arthritis, unspecified; E66.9 Obesity, unspecified; F17.210 Nicotine dependence, cigarettes, uncomplicated; Z68.42 Body mass index [BMI] 45.0-49.9, adult; Z95.828 Presence of other vascular implants and grafts; Z79.4 Long term (current) use of insulin; Z95.2 Presence of prosthetic heart valve
CPT/HCPCS: 29581

== ENCOUNTER 2019-02-28 07:48 | Outpatient (CLI) | payer OTHER ==
[2019-02-28] MEDS ORDERED: LIDOCAINE (4%) 40 MG/ML TOPICAL SOLN 50 ML BOTTLE TP ONE (08:30)
== END 2019-02-28 07:49 | disposition home or self-care (01) ==
LOC: WOUND 07:48
PROVIDERS: ATTEND Surgery
DX: E11.622 Type 2 diabetes mellitus with other skin ulcer (principal); L97.312 Non-pressure chronic ulcer of right ankle with fat layer exposed; I87.2 Venous insufficiency (chronic) (peripheral); I11.0 Hypertensive heart disease with heart failure; I50.40 Unspecified combined systolic (congestive) and diastolic (congestive) heart failure; I25.10 Atherosclerotic heart disease of native coronary artery without angina pectoris; M06.9 Rheumatoid arthritis, unspecified; E66.9 Obesity, unspecified; F17.210 Nicotine dependence, cigarettes, uncomplicated; Z68.42 Body mass index [BMI] 45.0-49.9, adult; Z95.828 Presence of other vascular implants and grafts; Z79.4 Long term (current) use of insulin; Z95.2 Presence of prosthetic heart valve
CPT/HCPCS: 29581

== ENCOUNTER 2019-03-07 08:00 | Outpatient (CLI) | payer OTHER | END 2019-03-07 08:01 | disposition home or self-care (01) | LOC: WOUND 08:00 | PROVIDERS: ATTEND Surgery | DX: E11.622 Type 2 diabetes mellitus with other skin ulcer (principal); L97.311 Non-pressure chronic ulcer of right ankle limited to breakdown of skin; I87.2 Venous insufficiency (chronic) (peripheral); I11.0 Hypertensive heart disease with heart failure; I50.40 Unspecified combined systolic (congestive) and diastolic (congestive) heart failure; F17.210 Nicotine dependence, cigarettes, uncomplicated; I25.10 Atherosclerotic heart disease of native coronary artery without angina pectoris; M06.9 Rheumatoid arthritis, unspecified; Z95.2 Presence of prosthetic heart valve | CPT/HCPCS: 29581 ==

== ENCOUNTER 2019-04-16 07:58 | Outpatient (CLI) | payer OTHER ==
[2019-04-16] MEDS ORDERED: LIDOCAINE (4%) 40 MG/ML TOPICAL SOLN 50 ML BOTTLE TP NR (08:15)
== END 2019-04-16 07:59 | disposition home or self-care (01) ==
LOC: WOUND 07:58
PROVIDERS: ATTEND Surgery
DX: E11.622 Type 2 diabetes mellitus with other skin ulcer (principal); L97.312 Non-pressure chronic ulcer of right ankle with fat layer exposed; I87.2 Venous insufficiency (chronic) (peripheral); I10 Essential (primary) hypertension; F17.210 Nicotine dependence, cigarettes, uncomplicated; I25.10 Atherosclerotic heart disease of native coronary artery without angina pectoris; M06.9 Rheumatoid arthritis, unspecified; Z95.2 Presence of prosthetic heart valve
CPT/HCPCS: 29581

== ENCOUNTER 2019-04-23 07:52 | Outpatient (CLI) | payer OTHER ==
[2019-04-23] MEDS ORDERED: LIDOCAINE (4%) 40 MG/ML TOPICAL SOLN 50 ML BOTTLE TP ONE (08:30)
== END 2019-04-23 07:53 | disposition home or self-care (01) ==
LOC: WOUND 07:52
PROVIDERS: ATTEND Surgery
DX: E11.622 Type 2 diabetes mellitus with other skin ulcer (principal); L97.312 Non-pressure chronic ulcer of right ankle with fat layer exposed; I87.2 Venous insufficiency (chronic) (peripheral); I10 Essential (primary) hypertension; F17.210 Nicotine dependence, cigarettes, uncomplicated; I25.10 Atherosclerotic heart disease of native coronary artery without angina pectoris; M06.9 Rheumatoid arthritis, unspecified; Z95.2 Presence of prosthetic heart valve
CPT/HCPCS: 29581

== ENCOUNTER 2019-05-01 07:50 | Outpatient (CLI) | payer OTHER ==
[2019-05-01] MEDS ORDERED: LIDOCAINE (4%) 40 MG/ML TOPICAL SOLN 50 ML BOTTLE TP ONE (08:30)
== END 2019-05-01 07:51 | disposition home or self-care (01) ==
LOC: WOUND 07:50
PROVIDERS: ATTEND Surgery
DX: E11.622 Type 2 diabetes mellitus with other skin ulcer (principal); L97.312 Non-pressure chronic ulcer of right ankle with fat layer exposed; I87.2 Venous insufficiency (chronic) (peripheral); I25.10 Atherosclerotic heart disease of native coronary artery without angina pectoris; M06.9 Rheumatoid arthritis, unspecified
CPT/HCPCS: 29581

== ENCOUNTER 2019-05-08 08:46 | Outpatient (CLI) | payer OTHER ==
[2019-05-08] MEDS ORDERED: LIDOCAINE (4%) 40 MG/ML TOPICAL SOLN 50 ML BOTTLE TP ONE (09:45)
== END 2019-05-08 08:47 | disposition home or self-care (01) ==
LOC: WOUND 08:46
PROVIDERS: ATTEND Surgery
DX: E11.622 Type 2 diabetes mellitus with other skin ulcer (principal); L97.312 Non-pressure chronic ulcer of right ankle with fat layer exposed; I87.2 Venous insufficiency (chronic) (peripheral); I25.10 Atherosclerotic heart disease of native coronary artery without angina pectoris; M06.9 Rheumatoid arthritis, unspecified
CPT/HCPCS: 29581

== ENCOUNTER 2019-05-16 13:27 | Outpatient (CLI) | payer OTHER ==
[2019-05-16] MEDS ORDERED: LIDOCAINE (4%) 40 MG/ML TOPICAL SOLN 50 ML BOTTLE TP ONE (14:30)
== END 2019-05-16 13:28 | disposition home or self-care (01) ==
LOC: WOUND 13:27
PROVIDERS: ATTEND Surgery
DX: E11.622 Type 2 diabetes mellitus with other skin ulcer (principal); L97.312 Non-pressure chronic ulcer of right ankle with fat layer exposed; I87.2 Venous insufficiency (chronic) (peripheral); I25.10 Atherosclerotic heart disease of native coronary artery without angina pectoris; M06.9 Rheumatoid arthritis, unspecified
CPT/HCPCS: 29581

== ENCOUNTER 2019-05-23 13:17 | Outpatient (CLI) | payer OTHER ==
[2019-05-23] MEDS ORDERED: LIDOCAINE (4%) 40 MG/ML TOPICAL SOLN 50 ML BOTTLE TP ONE (13:32)
== END 2019-05-23 13:18 | disposition home or self-care (01) ==
LOC: WOUND 13:17
PROVIDERS: ATTEND Surgery
DX: E11.622 Type 2 diabetes mellitus with other skin ulcer (principal); L97.312 Non-pressure chronic ulcer of right ankle with fat layer exposed; I87.2 Venous insufficiency (chronic) (peripheral); I25.10 Atherosclerotic heart disease of native coronary artery without angina pectoris; M06.9 Rheumatoid arthritis, unspecified
CPT/HCPCS: 29581

== ENCOUNTER 2019-05-30 13:11 | Outpatient (CLI) | payer OTHER ==
[2019-05-30] MEDS ORDERED: LIDOCAINE (4%) 40 MG/ML TOPICAL SOLN 50 ML BOTTLE TP ONE (13:29)
== END 2019-05-30 13:12 | disposition home or self-care (01) ==
LOC: WOUND 13:11
PROVIDERS: ATTEND Surgery
DX: E11.622 Type 2 diabetes mellitus with other skin ulcer (principal); L97.312 Non-pressure chronic ulcer of right ankle with fat layer exposed; I87.2 Venous insufficiency (chronic) (peripheral); I25.10 Atherosclerotic heart disease of native coronary artery without angina pectoris; M06.9 Rheumatoid arthritis, unspecified
CPT/HCPCS: 29581

== ENCOUNTER 2019-06-06 13:20 | Outpatient (CLI) | payer OTHER | END 2019-06-06 13:21 | disposition home or self-care (01) | LOC: WOUND 13:20 | PROVIDERS: ATTEND Surgery | DX: E11.622 Type 2 diabetes mellitus with other skin ulcer (principal); L97.312 Non-pressure chronic ulcer of right ankle with fat layer exposed; I87.2 Venous insufficiency (chronic) (peripheral); I25.10 Atherosclerotic heart disease of native coronary artery without angina pectoris; M06.9 Rheumatoid arthritis, unspecified | CPT/HCPCS: 29581 ==

== ENCOUNTER 2019-06-27 10:32 | Outpatient (CLI) | payer OTHER ==
[2019-06-27] MEDS ORDERED: LIDOCAINE (4%) 40 MG/ML TOPICAL SOLN 50 ML BOTTLE TP ONE (10:34)
== END 2019-06-27 10:33 | disposition home or self-care (01) ==
LOC: WOUND 10:32
PROVIDERS: ATTEND Surgery
DX: E11.622 Type 2 diabetes mellitus with other skin ulcer (principal); L97.312 Non-pressure chronic ulcer of right ankle with fat layer exposed; I10 Essential (primary) hypertension; I87.2 Venous insufficiency (chronic) (peripheral); I25.10 Atherosclerotic heart disease of native coronary artery without angina pectoris; M06.9 Rheumatoid arthritis, unspecified; F17.210 Nicotine dependence, cigarettes, uncomplicated; Z95.818 Presence of other cardiac implants and grafts

== ENCOUNTER 2019-07-14 13:26 | Outpatient (CLI) | payer OTHER ==
[2019-07-14] MEDS ORDERED: LIDOCAINE (4%) 40 MG/ML TOPICAL SOLN 50 ML BOTTLE TP ONE (13:34)
== END 2019-07-14 13:27 | disposition home or self-care (01) ==
LOC: WOUND 13:26
PROVIDERS: ATTEND Surgery
DX: E11.622 Type 2 diabetes mellitus with other skin ulcer (principal); L97.312 Non-pressure chronic ulcer of right ankle with fat layer exposed; I10 Essential (primary) hypertension; I87.2 Venous insufficiency (chronic) (peripheral); I25.10 Atherosclerotic heart disease of native coronary artery without angina pectoris; M06.9 Rheumatoid arthritis, unspecified; F17.210 Nicotine dependence, cigarettes, uncomplicated; Z95.818 Presence of other cardiac implants and grafts

== ENCOUNTER 2019-08-04 13:23 | Outpatient (CLI) | payer OTHER ==
[2019-08-04] MEDS ORDERED: LIDOCAINE (4%) 40 MG/ML TOPICAL SOLN 50 ML BOTTLE TP ONE (13:28)
== END 2019-08-04 13:24 | disposition home or self-care (01) ==
LOC: WOUND 13:23
PROVIDERS: ATTEND Surgery
DX: E11.622 Type 2 diabetes mellitus with other skin ulcer (principal); L97.312 Non-pressure chronic ulcer of right ankle with fat layer exposed; I10 Essential (primary) hypertension; I87.2 Venous insufficiency (chronic) (peripheral); I25.10 Atherosclerotic heart disease of native coronary artery without angina pectoris; M06.9 Rheumatoid arthritis, unspecified; F17.210 Nicotine dependence, cigarettes, uncomplicated; Z95.818 Presence of other cardiac implants and grafts

== ENCOUNTER 2019-08-11 16:30 | Outpatient (CLI) | payer OTHER ==
[~2019-08-11 16:30] MED LIST changes: +LIDOCAINE (4%) 40 MG/ML TOPICAL SOLN 50 ML BOTTLE TP ONE; -XYLOCAINE TOPICAL 4% TP ONE
== END 2019-08-11 16:31 | disposition home or self-care (01) ==
LOC: WOUND 16:30
PROVIDERS: ATTEND Surgery
DX: E11.622 Type 2 diabetes mellitus with other skin ulcer (principal); L97.312 Non-pressure chronic ulcer of right ankle with fat layer exposed; I10 Essential (primary) hypertension; I87.2 Venous insufficiency (chronic) (peripheral); I25.10 Atherosclerotic heart disease of native coronary artery without angina pectoris; M06.9 Rheumatoid arthritis, unspecified; F17.210 Nicotine dependence, cigarettes, uncomplicated; Z95.818 Presence of other cardiac implants and grafts

== ENCOUNTER 2019-08-25 13:21 | Outpatient (CLI) | payer OTHER ==
[2019-08-25] MEDS ORDERED: LIDOCAINE (4%) 40 MG/ML TOPICAL SOLN 50 ML BOTTLE TP ONE (13:29)
== END 2019-08-25 13:22 | disposition home or self-care (01) ==
LOC: WOUND 13:21
PROVIDERS: ATTEND Surgery
DX: E11.622 Type 2 diabetes mellitus with other skin ulcer (principal); L97.312 Non-pressure chronic ulcer of right ankle with fat layer exposed; I10 Essential (primary) hypertension; I87.2 Venous insufficiency (chronic) (peripheral); I25.10 Atherosclerotic heart disease of native coronary artery without angina pectoris; M06.9 Rheumatoid arthritis, unspecified; F17.210 Nicotine dependence, cigarettes, uncomplicated; Z95.818 Presence of other cardiac implants and grafts

== ENCOUNTER 2019-09-29 13:54 | Outpatient (CLI) | payer OTHER ==
[2019-09-29] MEDS ORDERED: LIDOCAINE (4%) 40 MG/ML TOPICAL SOLN 50 ML BOTTLE TP ONE (14:17)
== END 2019-09-29 13:55 | disposition home or self-care (01) ==
LOC: WOUND 13:54
PROVIDERS: ATTEND Surgery
DX: E11.622 Type 2 diabetes mellitus with other skin ulcer (principal); L97.312 Non-pressure chronic ulcer of right ankle with fat layer exposed; I10 Essential (primary) hypertension; I87.2 Venous insufficiency (chronic) (peripheral); I25.10 Atherosclerotic heart disease of native coronary artery without angina pectoris; M06.9 Rheumatoid arthritis, unspecified; F17.210 Nicotine dependence, cigarettes, uncomplicated; Z95.818 Presence of other cardiac implants and grafts

== ENCOUNTER 2019-10-27 13:31 | Outpatient (CLI) | payer OTHER ==
[2019-10-27] MEDS ORDERED: LIDOCAINE (4%) 40 MG/ML TOPICAL SOLN 50 ML BOTTLE TP ONE (13:32)
== END 2019-10-27 13:32 | disposition home or self-care (01) ==
LOC: WOUND 13:31
PROVIDERS: ATTEND Surgery
DX: E11.622 Type 2 diabetes mellitus with other skin ulcer (principal); L97.312 Non-pressure chronic ulcer of right ankle with fat layer exposed; I10 Essential (primary) hypertension; I87.2 Venous insufficiency (chronic) (peripheral); I25.10 Atherosclerotic heart disease of native coronary artery without angina pectoris; M06.9 Rheumatoid arthritis, unspecified; F17.210 Nicotine dependence, cigarettes, uncomplicated; Z85.818 Personal history of malignant neoplasm of other sites of lip, oral cavity, and pharynx
CPT/HCPCS: 29581

== ENCOUNTER 2019-11-10 14:23 | Outpatient (CLI) | payer OTHER | END 2019-11-10 14:24 | disposition home or self-care (01) | LOC: WOUND 14:23 | PROVIDERS: ATTEND Surgery | DX: E11.622 Type 2 diabetes mellitus with other skin ulcer (principal); L97.312 Non-pressure chronic ulcer of right ankle with fat layer exposed; I10 Essential (primary) hypertension; I87.2 Venous insufficiency (chronic) (peripheral); I25.10 Atherosclerotic heart disease of native coronary artery without angina pectoris; M06.9 Rheumatoid arthritis, unspecified; F17.210 Nicotine dependence, cigarettes, uncomplicated | CPT/HCPCS: 29581; G0463; 99213 ==

== ENCOUNTER 2019-11-17 13:52 | Outpatient (CLI) | payer OTHER | END 2019-11-17 13:53 | disposition home or self-care (01) | LOC: WOUND 13:52 | PROVIDERS: ATTEND Surgery | DX: E11.622 Type 2 diabetes mellitus with other skin ulcer (principal); L97.312 Non-pressure chronic ulcer of right ankle with fat layer exposed; I10 Essential (primary) hypertension; I87.2 Venous insufficiency (chronic) (peripheral); I25.10 Atherosclerotic heart disease of native coronary artery without angina pectoris; M06.9 Rheumatoid arthritis, unspecified; F17.210 Nicotine dependence, cigarettes, uncomplicated | CPT/HCPCS: 99213; G0463 ==

== ENCOUNTER 2021-07-08 11:19 | Outpatient (CLI) | payer OTHER ==
[2021-07-08] MEDS ORDERED: LIDOCAINE (4%) 40 MG/ML TOPICAL SOLN 50 ML BOTTLE TP ONE (11:53)
== END 2021-07-08 11:20 | disposition home or self-care (01) ==
LOC: WOUND 11:19
PROVIDERS: ATTEND Surgery
DX: E11.622 Type 2 diabetes mellitus with other skin ulcer (principal); L97.311 Non-pressure chronic ulcer of right ankle limited to breakdown of skin; I87.2 Venous insufficiency (chronic) (peripheral); I10 Essential (primary) hypertension; I25.10 Atherosclerotic heart disease of native coronary artery without angina pectoris; M06.9 Rheumatoid arthritis, unspecified; F17.210 Nicotine dependence, cigarettes, uncomplicated; Z98.890 Other specified postprocedural states; Z79.899 Other long term (current) drug therapy
CPT/HCPCS: 99215; G0463

== ENCOUNTER 2021-07-15 10:58 | Outpatient (CLI) | payer OTHER ==
[2021-07-15] MEDS ORDERED: LIDOCAINE (4%) 40 MG/ML TOPICAL SOLN 50 ML BOTTLE TP SCH (11:56)
== END 2021-07-15 10:59 | disposition home or self-care (01) ==
LOC: WOUND 10:58
PROVIDERS: ATTEND Surgery
DX: E11.622 Type 2 diabetes mellitus with other skin ulcer (principal); L97.312 Non-pressure chronic ulcer of right ankle with fat layer exposed; I87.2 Venous insufficiency (chronic) (peripheral); I10 Essential (primary) hypertension; I25.10 Atherosclerotic heart disease of native coronary artery without angina pectoris; M06.9 Rheumatoid arthritis, unspecified; F17.210 Nicotine dependence, cigarettes, uncomplicated; Z98.890 Other specified postprocedural states; Z79.899 Other long term (current) drug therapy

== ENCOUNTER 2021-07-22 10:57 | Outpatient (CLI) | payer OTHER ==
[2021-07-22] MEDS ORDERED: LIDOCAINE (4%) 40 MG/ML TOPICAL SOLN 50 ML BOTTLE TP ONE (11:03)
== END 2021-07-22 10:58 | disposition home or self-care (01) ==
LOC: WOUND 10:57
PROVIDERS: ATTEND Surgery
DX: E11.622 Type 2 diabetes mellitus with other skin ulcer (principal); L97.312 Non-pressure chronic ulcer of right ankle with fat layer exposed; I87.2 Venous insufficiency (chronic) (peripheral); I10 Essential (primary) hypertension; I25.10 Atherosclerotic heart disease of native coronary artery without angina pectoris; M06.9 Rheumatoid arthritis, unspecified; F17.210 Nicotine dependence, cigarettes, uncomplicated; Z98.890 Other specified postprocedural states; Z79.4 Long term (current) use of insulin; Z79.84 Long term (current) use of oral hypoglycemic drugs; Z79.899 Other long term (current) drug therapy

== ENCOUNTER 2021-07-29 08:53 | Outpatient (CLI) | payer OTHER ==
[2021-07-29] MEDS ORDERED: LIDOCAINE (4%) 40 MG/ML TOPICAL SOLN 50 ML BOTTLE TP ONE ×2 (09:11→12:14)
== END 2021-07-29 08:54 | disposition home or self-care (01) ==
LOC: WOUND 08:53
PROVIDERS: ATTEND Surgery
DX: E11.622 Type 2 diabetes mellitus with other skin ulcer (principal); L97.312 Non-pressure chronic ulcer of right ankle with fat layer exposed; I87.2 Venous insufficiency (chronic) (peripheral); I10 Essential (primary) hypertension; I25.10 Atherosclerotic heart disease of native coronary artery without angina pectoris; M06.9 Rheumatoid arthritis, unspecified; F17.210 Nicotine dependence, cigarettes, uncomplicated; Z98.890 Other specified postprocedural states; Z79.4 Long term (current) use of insulin; Z79.84 Long term (current) use of oral hypoglycemic drugs; Z79.899 Other long term (current) drug therapy

== ENCOUNTER 2021-08-05 09:02 | Outpatient (CLI) | payer OTHER ==
[2021-08-05] MEDS ORDERED: LIDOCAINE (4%) 40 MG/ML TOPICAL SOLN 50 ML BOTTLE TP ONE (09:24)
== END 2021-08-05 09:03 | disposition home or self-care (01) ==
LOC: WOUND 09:02
PROVIDERS: ATTEND Surgery
DX: E11.622 Type 2 diabetes mellitus with other skin ulcer (principal); L97.312 Non-pressure chronic ulcer of right ankle with fat layer exposed; I87.2 Venous insufficiency (chronic) (peripheral); I10 Essential (primary) hypertension; I25.10 Atherosclerotic heart disease of native coronary artery without angina pectoris; M06.9 Rheumatoid arthritis, unspecified; F17.210 Nicotine dependence, cigarettes, uncomplicated; Z98.890 Other specified postprocedural states; Z79.4 Long term (current) use of insulin; Z79.84 Long term (current) use of oral hypoglycemic drugs; Z79.899 Other long term (current) drug therapy

== ENCOUNTER 2021-08-12 10:29 | Outpatient (CLI) | payer OTHER ==
[2021-08-12] MEDS ORDERED: LIDOCAINE (4%) 40 MG/ML TOPICAL SOLN 50 ML BOTTLE TP ONE (12:00)
== END 2021-08-12 10:30 | disposition home or self-care (01) ==
LOC: WOUND 10:29
PROVIDERS: ATTEND Surgery
DX: E11.622 Type 2 diabetes mellitus with other skin ulcer (principal); L97.312 Non-pressure chronic ulcer of right ankle with fat layer exposed; I87.2 Venous insufficiency (chronic) (peripheral); I10 Essential (primary) hypertension; I25.10 Atherosclerotic heart disease of native coronary artery without angina pectoris; M06.9 Rheumatoid arthritis, unspecified; F17.210 Nicotine dependence, cigarettes, uncomplicated; Z98.890 Other specified postprocedural states; Z79.4 Long term (current) use of insulin; Z79.84 Long term (current) use of oral hypoglycemic drugs; Z79.899 Other long term (current) drug therapy

== ENCOUNTER 2021-08-19 08:57 | Outpatient (CLI) | payer OTHER ==
[2021-08-19] MEDS ORDERED: LIDOCAINE (4%) 40 MG/ML TOPICAL SOLN 50 ML BOTTLE TP ONE (09:04)
== END 2021-08-19 08:58 | disposition home or self-care (01) ==
LOC: WOUND 08:57
PROVIDERS: ATTEND Surgery
DX: E11.622 Type 2 diabetes mellitus with other skin ulcer (principal); L97.312 Non-pressure chronic ulcer of right ankle with fat layer exposed; I87.2 Venous insufficiency (chronic) (peripheral); I10 Essential (primary) hypertension; I25.10 Atherosclerotic heart disease of native coronary artery without angina pectoris; M06.9 Rheumatoid arthritis, unspecified; F17.210 Nicotine dependence, cigarettes, uncomplicated; Z98.890 Other specified postprocedural states; Z79.4 Long term (current) use of insulin; Z79.84 Long term (current) use of oral hypoglycemic drugs; Z79.899 Other long term (current) drug therapy

== ENCOUNTER 2021-09-09 09:30 | Outpatient (CLI) | payer OTHER ==
[2021-09-09] MEDS ORDERED: LIDOCAINE (4%) 40 MG/ML TOPICAL SOLN 50 ML BOTTLE TP ONE (10:22)
== END 2021-09-09 09:31 | disposition home or self-care (01) ==
LOC: WOUND 09:30
PROVIDERS: ATTEND Surgery
DX: E11.622 Type 2 diabetes mellitus with other skin ulcer (principal); L97.312 Non-pressure chronic ulcer of right ankle with fat layer exposed; I87.2 Venous insufficiency (chronic) (peripheral); I10 Essential (primary) hypertension; I25.10 Atherosclerotic heart disease of native coronary artery without angina pectoris; M06.9 Rheumatoid arthritis, unspecified; F17.210 Nicotine dependence, cigarettes, uncomplicated; Z98.890 Other specified postprocedural states; Z79.4 Long term (current) use of insulin; Z79.84 Long term (current) use of oral hypoglycemic drugs; Z79.899 Other long term (current) drug therapy